=== PATIENT | female | born 1980 | race Caucasian/White ===

== ENCOUNTER → 2017-08-10 | Outpatient (CLI) | payer BC ==
[2006-06-02 16:00] VITALS: PULSE 68; TEMP 98
== END ==
LOC: COL.VAS 11:31
DX: M79.605 Pain in left leg (principal)

== ENCOUNTER → 2019-05-03 | Outpatient (CLI) | payer OTHER ==
[2006-06-02 16:00] VITALS: TEMP 98
== END ==
LOC: MC.RAD 08:00
DX: N60.01 Solitary cyst of right breast (principal); N64.52 Nipple discharge
CPT/HCPCS: G0279

== ENCOUNTER → 2019-11-03 | Outpatient (CLI) | payer OTHER ==
[2006-06-02 16:00] VITALS: TEMP 98
== END ==
LOC: MC.RAD 08:15
DX: N60.01 Solitary cyst of right breast (principal)

== ENCOUNTER → 2020-09-08 | Outpatient (CLI) | payer BC, OTHER ==
[2006-06-02 16:00] VITALS: TEMP 98
== END ==
LOC: MC.RAD 07:00
DX: N60.01 Solitary cyst of right breast (principal); N63.10 Unspecified lump in the right breast, unspecified quadrant